=== PATIENT | female | born 1980 | race Two or more races ===

== ENCOUNTER 2017-10-14 09:00 | Emergency (ER) | payer SELFPAY ==
[2017-10-14] MEDS ORDERED: NS 1,000 ML IV ONE (09:33)
[2017-10-14] MEDS ORDERED: ONDANSETRON 4 MG/2 ML VIAL IVP ONE (09:39)
--- NOTE | 2017-10-14 09:40 | EDPHY ---
General Narrative: CHIEF COMPLAINT: Upper quadrant pain, Flank pain, vomiting HISTORY OF PRESENT ILLNESS: Patient complains of 3 days history of nausea, vomiting, severe right upper quadrant abdominal pain. The pain is colicky. It is worse when she lays down. It is also worse when she moves at times. It does improve spontaneously but does not resolved. It is rated at a 10/10. It radiates into her back. Associated with nausea and vomiting. No generalized abdominal pain. No urinary complaints. No fever or chills. No position of comfort when the pain present. She has not yet been evaluated for this. No previous history of this. No abdominal surgeries. No other associated complaints or modifying factors. REVIEW OF SYSTEMS: Ten systems reviewed and are negative unless otherwise noted in the HPI PCP: [facility] SPECIALISTS: None PAST MEDICAL HISTORY: None PAST SURGICAL HISTORY: None SOCIAL HISTORY: Nonsmoker. No alcohol or drug use. FAMILY HISTORY: Noncontributory EXAMINATION General Appearance: Alert, no distress Head: normocephalic, atraumatic Eyes: Pupils equal and round, no conjunctival pallor or injection ENT, Mouth: Mucous membranes moist. Airway patent Neck: Normal inspection, supple, non-tender Respiratory: Lungs are clear to auscultation Cardiovascular: Regular rate and rhythm. No murmur. Gastrointestinal: Abdomen is soft and nondistended. There is tenderness and positive Shi's in the right upper quadrant. No guarding. No distention or tympany. No right flank pain. Neurological: A&O, nonfocal, normal gait Skin: Warm and dry, no rash. No petechiae or purpura. Extremities: Nontender, no pedal edema. Symmetric range of motion of the extremities. Psychiatric: Mood and affect normal DIFFERENTIAL DIAGNOSES: Including but not limited to acute cholecystitis, cholelithiasis, acalculous cholecystitis, biliary dyskinesia, pancreatitis, renal colic MDM: 9:40 a.m. Right upper quadrant abdominal pain with positive Shi's, vomiting. History examination suggest gallbladder etiology. Vital signs were well within normal limits. She does not have a surgical abdomen at this time. I have ordered ultrasound, laboratory studies, IV fluid and pain medication. She is in no acute distress. I will re-evaluate shortly for pain control. She is comfortable this plan. 10:15 a.m. Notified by radiologist Dr. Anderson. Ultrasound of the right upper quadrant reveals a 2.6 cm stone impacted. Study is consistent with likely cholecystitis. 10:25 a.m. Case discussed with on-call surgeon Dr. Dinh. He will see the patient in the emergency department. Patient is aware of this. I re-evaluated her at this time. Her pain is improving with pain medication. 10:[address] Dinh has evaluated the patient. He recommends admission for laparoscopic cholecystectomy. He had a lengthy discussion with the patient and offered admission but the patient has thus far declined. 11:15 a.m. I have re-evaluated the patient. We discussed for nearly 20 min the risks, benefits and alternatives of admission versus going home. She is willing to assume the risk of going home including worsening pain, vomiting and possibly infection of the gallbladder. We discussed return to the emergency department should she change her mind or should the symptoms present. She will be provided short course of pain medication, nausea medication and the outpatient follow-up information for Dr. Dinh. I strongly recommended that she return to the emergency department should she change her mind or for symptoms worsen. Both she and her spouse at bedside are comfortable with this plan and she would still like to go home. 12:00 p.m. After discharging the patient, was notified by the RN that her blood pressure was 95 systolic when he attempted discharge her. Dr. Doty was notified and the patient was monitored. Her blood pressure has improved. She now has systolic greater than 100 on both arms and ambulatory without any dizziness or difficulty. Proceed with discharge home as above. SUPERVISION: Patient was independently examined, but I discussed the case with my secondary supervising physician Dr. Doty - Diagnostics Imaging Results: Imaging Impressions Abdomen Ultrasound 10/14/17 09:40 Impression: 1. Cholelithiasis. 2. Positive sonographic Shi's sign, suspicious for early cholecystitis ( despite the fact that the gallbladder wall is not abnormally thickened, and there is no pericholecystic fluid). There is no bile duct dilatation. This could be further evaluated with a nuclear medicine hepatobiliary scan, as clinically directed. 3. Mild hepatic steatosis. Findings were discussed with Shay Thacker PA-C at 10:19, on 10/14/2017. - History Smoking Status: Never smoked - Objective Vital Signs: Initial Vital Signs Temperature (C) 98.2 F 10/14/17 09:03 Heart Rate 76 10/14/17 09:03 Respiratory Rate 18 10/14/17 09:03 Blood Pressure 126/71 H 10/14/17 09:03 O2 Sat (%) 100 10/14/17 09:03 O2 Delivery Mode Room Air Allergies/Adverse Reactions: No Known Allergies Allergy (Unverified 11/20/10 05:21) Home Medications: Medication Instructions Recorded Ondansetron Odt [Zofran Odt 4 mg 4 mg PO Q6 PRN #12 tab 10/14/17 (*)] oxyCODONE HCL/ACETAMINOPHEN 1 each PO Q4-6PRN PRN #7 tablet 10/14/17 [Percocet 5-325 mg Tablet] Laboratory Results: Laboratory Results 10/14/17 09:32 10/14/17 09:32 10/14/17 10/14/17 10/14/17 09:33 09:32 09:32 WBC RBC Hgb Hct MCV MCH MCHC RDW Plt Count MPV Neut % (Auto) Lymph % (Auto) [place] % (Auto) Eos % (Auto) Baso % (Auto) Nucleat RBC Rel Count Absolute Neuts (auto) Absolute Lymphs (auto) Absolute Monos (auto) Absolute Eos (auto) Absolute Basos (auto) Absolute Nucleated RBC Immature Gran % Immature Gran # Sodium 141 mEq/L mEq/L (134-144) Potassium 4.3 mEq/L mEq/L (3.5-5.2) Chloride 105 mEq/L mEq/L (97-110) Carbon Dioxide 21 mEq/l L mEq/l (22-31) Anion Gap 15 mEq/L mEq/L (8-16) BUN 13 mg/dL mg/dL (7-23) Creatinine 0.6 mg/dL mg/dL (0.6-1.0) Estimated GFR > 60 Glucose 120 mg/dL H mg/dL (70-100) Calcium 9.3 mg/dL mg/dL (8.5-10.4) Total Bilirubin 0.5 mg/dL mg/dL (0.1-1.4) Conjugated Bilirubin 0.2 mg/dL mg/dL (0.0-0.5) Unconjugated Bilirubin 0.3 mg/dL mg/dL (0.0-1.1) AST 27 IU/L IU/L (14-46) ALT 20 IU/L IU/L (9-52) Alkaline Phosphatase 137 IU/L H IU/L (38-126) Total Protein 7.5 g/dL g/dL (6.3-8.2) Albumin 4.4 g/dL g/dL (3.5-5.0) Lipase 105 IU/L IU/L (23-300) Beta HCG, Qual NEGATIVE Urine Color YELLOW Urine Appearance HAZY Urine pH 8.0 H (5.0-7.5) Ur Specific [place] 1.018 (1.002-1.030) Urine Protein NEGATIVE (NEGATIVE) Urine Ketones NEGATIVE (NEGATIVE) Urine Blood NEGATIVE (NEGATIVE) Urine Nitrate NEGATIVE (NEGATIVE) Urine Bilirubin NEGATIVE (NEGATIVE) Urine Urobilinogen NEGATIVE EU EU (0.2-1.0) Ur Leukocyte Esterase NEGATIVE (NEGATIVE) Urine RBC 1-3 /hpf /hpf (0-3) Urine WBC NONE SEEN /hpf /hpf (0-3) Ur Epithelial Cells TRACE /lpf /lpf (NONE-1+) Urine Mucus TRACE /lpf /lpf (NONE-1+) Urine Glucose NEGATIVE (NEGATIVE) 10/14/17 09:32 WBC 7.28 10^3/uL 10^3/uL (3.80-9.50) RBC 4.64 10^6/uL 10^6/uL (4.18-5.33) Hgb 15.5 g/dL g/dL (12.6-16.3) Hct 43.9 % % (38.0-47.0) MCV 94.6 fL fL (81.5-99.8) MCH 33.4 pg pg (27.9-34.1) MCHC 35.3 g/dL g/dL (32.4-36.7) RDW 11.9 % % (11.5-15.2) Plt Count 252 10^3/uL 10^3/uL (150-400) MPV 9.6 fL fL (8.7-11.7) Neut % (Auto) 74.5 % H % (39.3-74.2) Lymph % (Auto) 20.1 % % (15.0-45.0) [place] % (Auto) 4.4 % L % (4.5-13.0) Eos % (Auto) 0.4 % L % (0.6-7.6) Baso % (Auto) 0.3 % % (0.3-1.7) Nucleat RBC Rel Count 0.0 % % (0.0-0.2) Absolute Neuts (auto) 5.43 10^3/uL 10^3/uL (1.70-6.50) Absolute Lymphs (auto) 1.46 10^3/uL 10^3/uL (1.00-3.00) Absolute Monos (auto) 0.32 10^3/uL 10^3/uL (0.30-0.80) Absolute Eos (auto) 0.03 10^3/uL 10^3/uL (0.03-0.40) Absolute Basos (auto) 0.02 10^3/uL 10^3/uL (0.02-0.10) Absolute Nucleated RBC 0.00 10^3/uL 10^3/uL (0-0.01) Immature Gran % 0.3 % % (0.0-1.1) Immature Gran # 0.02 10^3/uL 10^3/uL (0.00-0.10) Sodium Potassium Chloride Carbon Dioxide Anion Gap BUN Creatinine Estimated GFR Glucose Calcium Total Bilirubin Conjugated Bilirubin Unconjugated Bilirubin AST ALT Alkaline Phosphatase Total Protein Albumin Lipase Beta HCG, Qual Urine Color Urine Appearance Urine pH Ur Specific [place] Urine Protein Urine Ketones Urine Blood Urine Nitrate Urine Bilirubin Urine Urobilinogen Ur Leukocyte Esterase Urine RBC Urine WBC Ur Epithelial Cells Urine Mucus Urine Glucose Medications Given: Discontinued Medications Sodium Chloride (Ns) 1,000 mls @ 0 mls/hr IV EDNOW ONE; Wide Open PRN Reason: Protocol Stop: 10/14/17 09:34 Last Admin: 10/14/17 09:42 Dose: 1,000 mls Morphine Sulfate (Morphine) 4 mg IVP EDNOW ONE Stop: 10/14/17 09:41 Last Admin: 10/14/17 09:42 Dose: 4 mg Ondansetron HCl (Zofran) 4 mg IVP EDNOW ONE Stop: 10/14/17 09:40 Last Admin: 10/14/17 09:42 Dose: 4 mg Departure - Departure Disposition: Home, Routine, Self-Care Clinical Impression: Biliary colic, Symptomatic cholelithiasis, Elevated alkaline phosphatase level Condition: Fair Instructions: Cholecystitis (ED), Biliary Colic (ED), Gallstones (ED) Additional Instructions: 1. Medication as prescribed as needed 2. Outpatient follow-up with General surgery as discussed 3. ED precautions as discussed Referrals: [facility] [Other] - As per Instructions Woodrow Dinh MD [Medical Doctor] - As per Instructions Prescriptions: Ondansetron Odt [Zofran Odt 4 mg (*)] 4 mg PO Q6 PRN #12 tab PRN Reason: Nausea/Vomiting, Use 1st oxyCODONE HCL/ACETAMINOPHEN [Percocet 5-325 mg Tablet] 1 each PO Q4-6PRN PRN #7 tablet PRN Reason: Pain, Breakthrough Print Language: Mozambican
[2017-10-14] MEDS ORDERED: ONDANSETRON 4 MG/2 ML VIAL ONE (09:41)
[2017-10-14 09:49] LABS: PLATELET COUNT 252 10^3/uL (150-400)
[2017-10-14 10:22] VITALS: TEMP 99
[2017-10-14 11:32] VITALS: PULSE 57
[2017-10-14 11:54] VITALS: BP 104/66; RESP 18; O2SAT 97
--- NOTE | 2017-10-15 07:10 | GCON ---
[f rep st] CONSULTATION DATE OF CONSULTATION: 10/14/2017 REASON FOR CONSULTATION: Asked to see the patient by the emergency room physician in regard to right upper quadrant pain, cholelithiasis. HISTORY OF PRESENT ILLNESS: This 36-year-old female had severe epigastric pain , came to the emergency room. An ultrasound shows a large stone in the neck of the gallbladder. The patient received IV narcotics and felt much improved. At the time of my exam, she has a soft benign abdomen. Negative Shi sign. PAST MEDICAL HISTORY: ALLERGIES: None. CURRENT MEDICATIONS: None. PREVIOUS SURGERY: None. REVIEW OF SYSTEMS: Noncontributory. PHYSICAL EXAM: GENERAL: Pleasant, Bengali Mal[place] female. HEENT: No scleral icterus. Pharynx clear. NECK: Supple without adenopathy. LUNGS: Clear. HEART: Normal S1, S2 without murmur. ABDOMEN: Soft, benign. Negative Shi sign. EXTREMITIES/NEUROLOGIC: Unremarkable. LABORATORY: Exams reviewed and are fairly normal. ASSESSMENT: Cholelithiasis, previously symptomatic, currently asymptomatic. I discussed cholecystectomy with the patient given she has a large stone, recent severe symptoms, and will likely continue to have problems like this. She is somewhat afraid of having surgery. I explained to her the likelihood that she will have further attacks is quite high. She will consider this, but would like to be discharged, and this is not unreasonable. I recommended the emergency room physician give her some liquids to make sure she does not have immediate nausea, vomiting, pain, etc. Otherwise, I gave her my contact information and will be happy to see her at any time. /[id number]/MODL MTDD
== END 2017-10-14 12:01 | disposition home or self-care (01) ==
DX: K80.70 Calculus of gallbladder and bile duct without cholecystitis without obstruction (principal); R74.8 Abnormal levels of other serum enzymes; E86.9 Volume depletion, unspecified
CPT/HCPCS: 96374; J2405